=== PATIENT | male | born 1945 | race Asian ===

== ENCOUNTER 2017-07-08 12:51 | Outpatient (CLI) | payer OTHER, BC | END 2017-07-08 13:10 | disposition short-term general hospital (02) | LOC: AMB 12:51 | DX: R07.89 Other chest pain (principal); R53.1 Weakness | CPT/HCPCS: A0425; A0427 ==

== ENCOUNTER 2017-09-25 19:22 | Outpatient (CLI) | payer OTHER, BC | END 2017-09-25 20:02 | disposition short-term general hospital (02) | LOC: AMB 19:22 | DX: R07.89 Other chest pain (principal) | CPT/HCPCS: A0425; A0427 ==

== ENCOUNTER 2018-03-09 06:09 | Outpatient (CLI) | payer OTHER ==
[2018-03-09] MEDS ORDERED: GABA300C2 PO (06:47)
[2018-03-09] MEDS ORDERED: PERCOCET1 TA3 PO (06:47)
[2018-03-09] MEDS ORDERED: LIPITOR20 MG PO (06:48)
[2018-03-09] MEDS ORDERED: LOSA50TA PO (06:49)
[2018-03-09] MEDS ORDERED: CARV3.12 PO (06:49)
[2018-03-09] MEDS ORDERED: XARELTO20 MG PO (06:50)
[2018-03-09] MEDS ORDERED: CHLORTHALID25 MG PO (06:50)
[2018-03-09] MEDS ORDERED: DSS100 MG PO (06:51)
[2018-03-09] MEDS ORDERED: DOXYCYCL HYC50 MG PO (06:51)
[2018-03-09] MEDS ORDERED: FLUTICASONE50 MCG (06:52)
[2018-03-09] MEDS ORDERED: CLOP75TA2 PO (06:52)
[2018-03-09] MEDS ORDERED: MECLIZINE25 MG PO (06:52)
[2018-03-09] MEDS ORDERED: B121000 MCG PO (06:53)
[2018-03-10] MEDS ORDERED: K-TAB20 MEQ PO (07:40)
== END 2018-03-09 06:22 | disposition short-term general hospital (02) ==
LOC: AMB 06:09
DX: R07.89 Other chest pain (principal)
CPT/HCPCS: A0425; A0427

== ENCOUNTER 2018-03-09 06:28 | Observation (INO) | payer OTHER ==
[~2018-03-09] VITALS: Ht 188 cm; Wt 76.7 kg
[2018-03-09 06:24] VITALS: BP 133/61; TEMP 98.2
[2018-03-09] MEDS ORDERED: GABA300C2 PO (06:47)
[2018-03-09] MEDS ORDERED: PERCOCET1 TA3 PO (06:47)
[2018-03-09] MEDS ORDERED: LIPITOR20 MG PO (06:48)
[2018-03-09 06:49] LABS: PLATELET COUNT 226 K/uL (142-355)
[2018-03-09] MEDS ORDERED: CARV3.12 PO (06:49)
[2018-03-09] MEDS ORDERED: LOSA50TA PO (06:49)
[2018-03-09] MEDS ORDERED: XARELTO20 MG PO (06:50)
[2018-03-09] MEDS ORDERED: CHLORTHALID25 MG PO (06:50)
[2018-03-09] MEDS ORDERED: DOXYCYCL HYC50 MG PO (06:51)
[2018-03-09] MEDS ORDERED: DSS100 MG PO (06:51)
[2018-03-09] MEDS ORDERED: MECLIZINE25 MG PO (06:52)
[2018-03-09] MEDS ORDERED: FLUTICASONE50 MCG (06:52)
[2018-03-09] MEDS ORDERED: CLOP75TA2 PO (06:52)
[2018-03-09] MEDS ORDERED: B121000 MCG PO (06:53)
[2018-03-09 06:56] LABS: POTASSIUM 2.8 mmol/L (3.6-5.2)
[2018-03-09 07:30] VITALS: BP 109/53
[2018-03-09 08:30] VITALS: BP 124/53
[2018-03-09 09:10] VITALS: BP 122/52
[2018-03-09 10:02] VITALS: BP 128/49; TEMP 97.6; Ht 188 cm; Wt 76.7 kg
[2018-03-09 20:10] VITALS: BP 113/51; TEMP 98.5
[2018-03-10] VITALS: BP 102/60; TEMP 98
[2018-03-10 04:00] VITALS: BP 148/72; TEMP 97.8
[2018-03-10 06:20] LABS: PLATELET COUNT 189 K/uL (142-355)
[2018-03-10 06:38] LABS: POTASSIUM 3.2 mmol/L (3.6-5.2)
[2018-03-10] MEDS ORDERED: K-TAB20 MEQ PO (07:40)
== END 2018-03-10 08:20 | disposition home or self-care (01) ==
LOC: ED 06:28 → MED/SURG 08:16
PROVIDERS: ADMIT Family Medicine
DX: R07.89 Other chest pain (principal); I25.10 Atherosclerotic heart disease of native coronary artery without angina pectoris; E87.6 Hypokalemia
CPT/HCPCS: 36415; 36591; 80048; 80053; 82550; 83735; 84484; 85027; 93005; 94760; 99220; 99283; G0378; J3480